=== PATIENT | female | born 1990 | race Caucasian/White ===

== ENCOUNTER 2024-03-06 05:06 | Inpatient (IN) | payer OTHER ==
[~2024-03-06] VITALS: Ht 162.6 cm; Wt 77.1 kg
[2024-03-06 06:09] LABS: AMNISURE ROM TEST POSITIVE
[2024-03-06 07:29] VITALS: BP 123/70
[2024-03-06] MEDS ORDERED: OXYTOCIN/0.9 % SODIUM CHLORIDE 30 UNITS/500 ML BAG IV SCH (08:15)
[2024-03-06] MEDS ORDERED: CALCIUM CARBONATE 500 MG CHEW PO PRN ×2 (08:15→12:15)
[2024-03-06] MEDS ORDERED: LACTATED RINGER'S 1,000 ML IV SCH (08:15)
[2024-03-06] MEDS ORDERED: MAGNESIUM HYDROXIDE/AL HYDROX 30 ML CUP PO PRN ×2 (08:15→12:15)
[2024-03-06 08:20] LABS: HEMATOCRIT 38.4 % (35.0-50.0); HEMOGLOBIN 13.1 g/dL (12.0-18.0); MCH 31.3 (27-36); MCHC 34.1 g/dl (30-36); MCV 91.7 fl (81-99); RBC 4.19 M/ul (4.3-5.7); RDW 13.9 (10.5-15.0)
[2024-03-06 08:50] LABS: AMPHETAMINES, URINE NEGATIVE (NEGATIVE); BARBITURATES, URINE NEGATIVE (NEGATIVE); BENZODIAZEPINE, URINE NEGATIVE (NEGATIVE); BUPRENORPHINE, URINE NEGATIVE (NEGATIVE); CANNABINOID, URINE NEGATIVE (NEGATIVE); COCAINE, URINE NEGATIVE (NEGATIVE); ECSTASY, URINE NEGATIVE (NEGATIVE); FENTANYL, URINE NEGATIVE (NEGATIVE); METHADONE, URINE NEGATIVE (NEGATIVE); OPIATES, URINE NEGATIVE (NEGATIVE); OXYCODONE, URINE NEGATIVE (NEGATIVE); PHENCYCLIDINE, URINE NEGATIVE (NEGATIVE)
[2024-03-06 10:34] LABS: ABO O; RH NEGATIVE
[2024-03-06 10:35] LABS: ANTIBODY SCREEN POSITIVE
--- NOTE | 2024-03-06 11:38 | PR ---
[facility] [address], [place] [address] Signed Progress Notes IP Datetime Report Generated by CPN: 03/06/2024 11:38 PROGRESS NOTES: [id number] Impression: Normal Progression of Labor; Reassuring Heart Rate Procedures: Sterile Vag Exam Plan: Continue Present Management; Anticipate Vaginal Delivery Informed Consent Obtain: Vaginal Delivery; Risks, Benefits and Alternatives Discussed VITAL SIGNS: [id number] Vital Signs: Reviewed; Within Normal Limits EXAM: [id number] Dilatation: 9.5 Effacement: 90 Station: -2 Contractions: q 2 min MEMBRANES: [id number] Comments: Pt seen and examined. Involuntary pushing w/ contractions. On exam, reducible anterior lip. Cat 1 tracing. Anticipate soon. FETUS A: [id number] FHR Baseline: 125 Variability: Moderate 6-25bpm Accelerations: 15X15 Decelerations: None FHR Category: Category I Presentation: Vertex Comments on Fetus A: No evidence of metabolic acidosis FETUS B: [id number] Signing Physician: Kenisha Ruiz DO Copies: ~ *Electronically Signed* 03/06/24 0846 KENISHA RUIZ (PIERCE) DO PATIENT NAME: CHEL BECERRA PROGRESS NOTE DATE OF : 92 PHYSICIAN: KENISHA RUIZ) DO RPT #: [id number] REPORT IS CONFIDENTIAL AND NOT TO BE RELEASED WITHOUT AUTHORIZATION
[2024-03-06] MEDS ORDERED: OXYTOCIN 10 UNITS/ML VIAL ONE (11:48)
[2024-03-06] MEDS ORDERED: MAGNESIUM HYDROXIDE 30 ML UDC PO PRN (12:15)
[2024-03-06] MEDS ORDERED: OXYCODONE HCL 5 MG TAB PO PRN (12:15)
[2024-03-06] MEDS ORDERED: ACETAMINOPHEN 325 MG TAB PO PRN (12:15)
[2024-03-06] MEDS ORDERED: WITCH HAZEL/GLYCERIN 1 EA PAD TOP PRN (12:15)
[2024-03-06] MEDS ORDERED: LIDOCAINE 2% VISCOUS 6 ML SYR TOP ONE (12:15)
[2024-03-06] MEDS ORDERED: HYDROCODONE/ACETA 5/325 TAB PO PRN (12:15)
[2024-03-06] MEDS ORDERED: BENZOCAINE 60 ML AEROSOL TOP PRN (12:15)
[2024-03-06] MEDS ORDERED: OXYTOCIN/0.9 % SODIUM CHLORIDE 500 ML IV SCH (12:15)
[2024-03-06] MEDS ORDERED: HYDROCORTISONE ACETATE 25 MG SUPP PR PRN (12:15)
[2024-03-06] MEDS ORDERED: OXYCODONE/APAP 5/325 TAB PO PRN (12:15)
[2024-03-06] MEDS ORDERED: IBUPROFEN 600 MG TAB PO PRN (12:15)
[2024-03-06] MEDS ORDERED: OXYTOCIN 10 UNITS/ML VIAL IM ONE (14:15)
[2024-03-06] MEDS ORDERED: FERROUS SULFATE 325 MG TAB PO SCH (17:00)
[2024-03-06] MEDS ORDERED: SENNOSIDES/DOCUSATE 1 EA TAB PO SCH (21:00)
[2024-03-07 05:24] LABS: HEMATOCRIT 35.2 % (35.0-50.0); HEMOGLOBIN 12.2 g/dL (12.0-18.0); MCH 31.4 (27-36); MCHC 34.8 g/dl (30-36); MCV 90.3 fl (81-99); RBC 3.9 M/ul (4.3-5.7)
[2024-03-07 07:52] LABS: ABO O; RH NEGATIVE
[2024-03-07 07:53] LABS: ANTIBODY SCREEN POSITIVE; FETAL HEMOGLOBIN SCREEN NEGATIVE; RHIG STATUS CANDIDATE; RHIG VIAL 1 RG24K02-F
[2024-03-07 07:54] LABS: RHIG DOSE 1
== END 2024-03-07 13:10 | disposition home or self-care (01) | DRG 807 ==
LOC: FBCO 05:06 → FBC 06:15
PROVIDERS: ADMIT Obstetrics & Gynecology; ATTEND Obstetrics & Gynecology
PROC: 10E0XZZ Delivery of Products of Conception, External Approach (ICD-10-PCS; principal; 2024-03-06)
PROC: 0KQM0ZZ Repair Perineum Muscle, Open Approach (ICD-10-PCS; 2024-03-06)
DX: O42.02 Full-term premature rupture of membranes, onset of labor within 24 hours of rupture (principal); Z37.0 Single live birth; O69.81X0 Labor and delivery complicated by cord around neck, without compression, not applicable or unspecified; Z3A.39 39 weeks gestation of pregnancy; O70.1 Second degree perineal laceration during delivery; O99.344 Other mental disorders complicating childbirth; F41.9 Anxiety disorder, unspecified; F32.A Depression, unspecified
CPT/HCPCS: 36415; 59025; 80307; 83030; 84112; 85027; 86850; 86900; 86901; A9270; G0463; J2590; J2790